=== PATIENT | male | born 1965 | race Caucasian/White ===

== ENCOUNTER 2022-10-21 15:10 | Emergency (ER) | payer OTHER, SELFPAY ==
[2022-10-21 15:22] VITALS: BP 119/88; PULSE 98; RESP 18; TEMP 36.8; O2SAT 99
[2022-10-21 15:26] VITALS: BP 119/88; PULSE 98; RESP 18; TEMP 36.8; O2SAT 99
--- NOTE | 2022-10-21 15:33 | ED.GENADULT ---
HPI - General Adult General Chief complaint: Skin/Abscess/Foreign Body Stated complaint: Left Arm Swelling/Wound Check Source: patient and RN notes reviewed History of Present Illness HPI narrative: 57 yo M Presents to urgent care with complaints of worsening left hand pain and swelling. Pt states he was seen at [facility] ER the last two days for this where they lanced the wound on his left finger and placed him on antibiotics. Pt is currently taking cephalexin and bactrim DS. Pt states his symptoms are worsening. Pt reports significant pain as well. Denies any fevers that he knows of, vomiting, chest pain, or SOB. Related Data Home Medications Medication Instructions Recorded Confirmed albuterol sulfate 90 mcg/actuation 90 inhalation 10/21/22 aerosol inhaler bupropion HCl 75 mg tablet 75 mg PO DAILY 10/21/22 10/21/22 cephalexin 500 mg capsule 500 mg PO BID 10/21/22 10/21/22 levothyroxine 150 mcg tablet 150 mcg PO DAILY 10/21/22 10/21/22 omeprazole 40 mg capsule,delayed 40 mg PO DAILY 10/21/22 10/21/22 release ropinirole 2 mg tablet 2 mg PO BID 10/21/22 10/21/22 Allergies Allergy/AdvReac Type Severity Reaction Status Date / Time ampicillin Allergy Unknown Loss of Verified 10/21/22 15:23 Consciousness Review of Systems Review of Systems: CONSTITUTIONAL: Denies fever, chills, or sweats. EYES: Denies visual changes, redness, or discharge. ENT: Denies otalgia and sore throat CARDIOVASCULAR: Denies chest pain, palpitations, or edema. RESPIRATORY: Denies cough or dyspnea. GASTROINTESTINAL: Denies abdominal pain, nausea, vomiting, or diarrhea. GENITOURINARY: Denies dysuria or hematuria. SKIN: Left hand and forearm pain, redness, or swelling with wound to left ring finger. MUSCULOSKELETAL: Denies back pain, joint pain, or myalgia. NEUROLOGIC: Denies headache, numbness, or weakness. Pertinent positives per HPI. PMFSH Comments At the time of my signature, I reviewed and agree with the nursing past medical, surgical, social, and family history. There is no relevant family history pertinent to the patient complaint. Exam Narrative: GENERAL: This is a well-nourished, well-developed patient, in no apparent distress. HEAD: normocephalic, atraumatic. EYES: Sclera clear/white. Vision is grossly intact. EARS: External ears normal, auditory canals clear and without drainage. Hearing grossly intact. NOSE: External nose normal with no obvious nasal discharge, nares without redness, no rhinorrhea. THROAT: Mucous membranes moist, posterior pharynx clear. NECK: Neck supple, non-tender without lymphadenopathy, masses or thyromegaly. CARDIOVASCULAR: Regular rate and rhythm without murmurs, gallops, or rubs. RESPIRATORY: Clear to auscultation. Breath sounds equal bilaterally. No wheezes, rales, or rhonchi. GASTROINTESTINAL: Abdomen soft, non-tender, nondistended. Bowel sounds are active. No hepato-splenomegaly, or palpable masses. No guarding. SKIN: Left, dorsal, ring finger wound approximately 1.5 cm with surrounding erythema and swelling extending to left mid forearm. NEURO: awake, alert, and oriented to person, place and time. There were no obvious focal neurologic abnormalities. EXTREMITIES: Left hand and forearm, significantly and unordinarily tender to the touch. Course Course Level of Care: Express Care Visit Vital Signs Vital signs: Vital Signs Temperature 98.3 F 10/21/22 15:22 Pulse Rate 98 10/21/22 15:22 Respiratory Rate 18 10/21/22 15:22 Blood Pressure 119/88 10/21/22 15:22 Pulse Oximetry 99 10/21/22 15:22 Oxygen Delivery Room Air 10/21/22 15:22 Temperature 98.3 F 10/21/22 15:26 Pulse Rate 98 10/21/22 15:26 Respiratory Rate 18 10/21/22 15:26 Blood Pressure 119/88 10/21/22 15:26 Pulse Oximetry 99 10/21/22 15:26 Oxygen Delivery Room Air 10/21/22 15:26 Reviewed Medical Decision Making MDM Narrative Medical decision making narrative: Spoke to Luis
== END 2022-10-21 16:00 | disposition short-term general hospital (02) ==
PROVIDERS: Emergency Provider Nurse Practitioner Family; PCP Internal Medicine
DX: T81.40XA Infection following a procedure, unspecified, initial encounter (principal); L03.012 Cellulitis of left finger; J44.9 Chronic obstructive pulmonary disease, unspecified; K21.9 Gastro-esophageal reflux disease without esophagitis; E03.9 Hypothyroidism, unspecified
CPT/HCPCS: 99202; G0463